=== PATIENT | male | born 1990 | race Caucasian/White ===

== ENCOUNTER 2016-04-09 05:36 | Emergency (ER) | payer BC ==
[2016-04-09] MEDS ORDERED: Sodium Chloride 0.9% 1000 ML 1,000 ML IV STA (06:14)
[2016-04-09] MEDS ORDERED: Sodium Chloride 0.9% 1000 ML 1,000 ML ONE (06:26)
[2016-04-09] MEDS ORDERED: TORAdol 30 mg Injection IV ONE (06:26)
[2016-04-09] MEDS ORDERED: TORAdol 30 mg Injection ONE (06:28)
[2016-04-09 06:29] LABS: BASOPHIL % 0.5 % (0.0-0.4); Eosinophil % 3.8 % (0.00-5.0); Granulocytes % 23.3 % (36.0-66.0); Lymphocytes % 63.2 % (24.0-44.0); Mean Cell Volume 88.1 fl (78-100); Mean Corpuscular Hemoglobin 29.1 pg (26-32); Mean Platelet Volume 9.4 fl (6-9.5); Monocytes % 9.2 % (0.0-12.0); Platelet Count 223 K/mm3 (150-450); Red Blood Count 4.37 M/mm3 (4.1-5.6); Red Cell Distribution Width 12.6 % (11.5-14.0); White Blood Count 7.3 K/mm3 (4.0-10.5)
--- NOTE | 2016-04-09 06:37 | ERPHSYRPT ---
- History of Present Illness Historian: patient Patient Subjective Stated Complaint: pt c/o cramping and sharp pain in rlq and rt flank radiating to rt testicle. increased with movement and laying flat. states he has had pain for 24 hrs Triage Nursing Assessment: pt alert and oriented. answers questions approp. pt ambulatory with steady gait noted. respirations nonlabored with lungs cta. abd flat and soft with hypo bowel sounds. Timing/Duration: yesterday Previous symptoms: no prior history Hx Tetanus, Diphtheria Vaccination/Date Given: Yes Hx Influenza Vaccination/Date Given: No Hx Pneumococcal Vaccination/Date Given: No Immunizations Up to Date: Yes <ALEN GIBSON - Last Filed: 04/09/16 06:38> <WHITNEY LORENZO - Last Filed: 04/09/16 07:50> - History of Present Illness Time Seen by Provider: 04/09/16 06:14 Physician History: CC: abd pain Hx: 25 y/o healthy male patient with right sided flank and abd pain since yesterday. Some nausea. No vomiting. Some constipation. No chest pain. No fever or chills. Pain radiates from right flank to right groin area. No testicle swelling or discreet pain. Normal urination and no hematuria. Pain mild to moderate but bothersome. (ALEN GIBSON) Allergies/Adverse Reactions: No Known Drug Allergies Allergy (Verified 04/09/16 06:13) Home Medications: No Home Meds 1 [facility] UD 08/15/13 [History] - Review of Systems Constitutional: No Fever, No Chills Eyes: No Symptoms Ears, Nose, & Throat: No Throat Pain Respiratory: No Cough, No Dyspnea Cardiac: No Chest Pain Abdominal/Gastrointestinal: Abdominal Pain, Nausea, No Vomiting, No Diarrhea Genitourinary Symptoms: Flank Pain, No Dysuria, No Hematuria, No Testicle Pain Musculoskeletal: Back Pain, No Neck Pain Skin: No Rash Neurological: No Headache, No Paralysis, No Parasthesia All Other Systems: Reviewed and Negative <ALEN GIBSON - Last Filed: 04/09/16 06:38> - Past Medical History Pertinent Past Medical History: No - Past Surgical History Past Surgical History: No - Social History Smoking Status: Never smoker Exposure to second hand smoke: No Drug Use: marijuana Patient Lives Alone: No <ALEN GIBSON - Last Filed: 04/09/16 06:38> - Physical Exam General Appearance: alert, other (tall, thin, arachnodactyly) Eye Exam: PERRL/EOMI Ears, Nose, Throat Exam: normal ENT inspection, moist mucous membranes, other ( no high arched palate) Neck Exam: normal inspection, non-tender, supple Respiratory Exam: normal breath sounds, lungs clear Cardiovascular Exam: regular rate/rhythm, other (2+ femoral pulses), No murmur, No pulse deficit Gastrointestinal/Abdomen Exam: soft, other (no point tenderness), No distention , No mass, No guarding Male Genitalia Exam: normal genitalia, No hernia, No testicular tenderness Extremity Exam: normal range of motion Neurologic Exam: alert, oriented x 3, cooperative, programming manager II-XII nml as tested, sensation nml, No motor deficits Skin Exam: warm, dry, No rash SpO2 Interpretation: normal SpO2: 98 Oxygen Delivery: Room Air <ALEN GIBSON - Last Filed: 04/09/16 06:38> <WHITNEY LORENZO - Last Filed: 04/09/16 07:50> - Nursing Vital Signs Nursing Vital Signs: Initial Vital Signs Temperature 97.6 F Temperature Source Oral Pulse Rate 78 Respiratory Rate 16 Blood Pressure 128/64 Pain Intensity 1 - Physical Exam Comments: 04/09/16 06:35 high arched feet. Span 180cm and height 168 cm. (ALEN GIBSON) - Course Nursing assessment & vital signs reviewed: Yes <ALEN GIBSON - Last Filed: 04/09/16 06:38> - CT Exams Abdomen/Pelvis CT Interpretation: Tele-radiologist Report, Normal Appendix, No appendicitis, Other (small bowel loops with some fluid levels, ileus vs enteritis. Scattered fecal stasis without obstruction.) <WHITNEY LORENZO - Last Filed: 04/09/16 07:50> Ordered Tests: Active Orders 24 hr Category Date Time Status Clean Catch Urine Specimen STAT Care 04/09/16 06:14 Active IV Insertion STAT Care 04/09/16 06:14 Active NPO (ED) STAT Care 04/09/16 06:14 Active ABDOMEN AND PELVIS W/0 CONTRAS [CT] Stat Exams 04/09/16 06:27 Taken CHEST 2 VIEWS (PA AND LAT) Stat Exams 04/09/16 06:47 Ordered CBC W DIFF Stat Lab 04/09/16 06:06 Completed CMP Stat Lab 04/09/16 06:06 Completed LIPASE Stat Lab 04/09/16 06:30 Completed UA Stat Lab 04/09/16 06:40 Completed Medication Summary Discontinued Medications Generic Name Dose Route Start Last Admin Trade Name Darline PRN Reason Stop Dose Admin Sodium Chloride 1,000 mls @ 999 mls/hr 04/09/16 06:14 04/09/16 06:27 Sodium Chloride 0.9% 1000 Ml IV 04/09/16 07:14 999 mls/hr .Q1H1M STA Administration Sodium Chloride Confirm 04/09/16 06:26 Sodium Chloride 0.9% 1000 Ml Administered 04/09/16 06:27 Dose 1,000 mls @ ud .ROUTE .STK-MED ONE Ketorolac Tromethamine 30 mg 04/09/16 06:26 04/09/16 06:29 Toradol 30 Mg Injection IV 04/09/16 06:27 30 mg STAT ONE Administration Ketorolac Tromethamine Confirm 04/09/16 06:28 Toradol 30 Mg Injection Administered 04/09/16 06:29 Dose 30 mg .ROUTE .STK-MED ONE Lab/Rad Data: Laboratory Result Diagrams 04/09/16 06:06 04/09/16 06:06 Laboratory Results 04/09/16 04/09/16 04/09/16 Range/Units 06:40 06:30 06:06 WBC (4.0-10.5) K/mm3 RBC (4.1-5.6) M/mm3 Hgb (12.5-18.0) gm/dl Hct (42-50) % MCV (78-100) fl MCH (26-32) pg MCHC (32-36) g/dl RDW (11.5-14.0) % Plt Count (150-450) K/mm3 MPV (6-9.5) fl Gran % (36.0-66.0) % Lymphocytes % (24.0-44.0) % Monocytes % (0.0-12.0) % Eosinophils % (0.00-5.0) % Basophils % (0.0-0.4) % Basophils # (0-0.4) Sodium 144 (136-145) mEq/L Potassium 3.8 (3.5-5.1) mEq/L Chloride 106 (98-107) mEq/L Carbon Dioxide 28.9 (21-32) mEq/L Anion Gap 13.1 (5-15) MEQ/L BUN 21 H (9-20) mg/dL Creatinine 0.82 (0.55-1.30) mg/dl Estimated GFR > 60 ML/MIN Glucose 101 (70-110) MG/DL Calcium 8.8 (8.5-10.1) mg/dL Total Bilirubin 0.4 (0.2-1.0) mg/dL AST 67 H (15-37) U/L ALT 140 H (12-78) U/L Alkaline Phosphatase 91 (46-116) U/L Serum Total Protein 7.8 (6.4-8.2) gm/dL Albumin 3.9 (3.4-5.0) g/dL Lipase 274 (73-393) U/L Ur Collection Type CLEAN CATCH Urine Color YELLOW (YELLOW) Urine Appearance CLEAR (CLEAR) Urine pH 6.5 (5-6) Ur Specific [place] 1.025 (1.005-1.025) Urine Protein NEGATIVE (Negative) Urine Glucose (UA) NEGATIVE (NEGATIVE) mg/dL Urine Ketones NEGATIVE (NEGATIVE) Urine Nitrite NEGATIVE (NEGATIVE) Urine Bilirubin NEGATIVE (NEGATIVE) Urine Urobilinogen 0.2 (0-1) mg/dL Urine WBC (Auto) NEGATIVE (NEGATIVE) Urine RBC (Auto) NEGATIVE (0-5) Mart/ul Specimen Received 04/09/16 0640 04/09/16 Range/Units 06:06 WBC 7.3 (4.0-10.5) K/mm3 RBC 4.37 (4.1-5.6) M/mm3 Hgb 12.7 (12.5-18.0) gm/dl Hct 38.5 L (42-50) % MCV 88.1 (78-100) fl MCH 29.1 (26-32) pg MCHC 33.0 (32-36) g/dl RDW 12.6 (11.5-14.0) % Plt Count 223 (150-450) K/mm3 MPV 9.4 (6-9.5) fl Gran % 23.3 L (36.0-66.0) % Lymphocytes % 63.2 H (24.0-44.0) % Monocytes % 9.2 (0.0-12.0) % Eosinophils % 3.8 (0.00-5.0) % Basophils % 0.5 (0.0-0.4) % Basophils # 0.04 (0-0.4) Sodium (136-145) mEq/L Potassium (3.5-5.1) mEq/L Chloride (98-107) mEq/L Carbon Dioxide (21-32) mEq/L Anion Gap (5-15) MEQ/L BUN (9-20) mg/dL Creatinine (0.55-1.30) mg/dl Estimated GFR ML/MIN Glucose (70-110) MG/DL Calcium (8.5-10.1) mg/dL Total Bilirubin (0.2-1.0) mg/dL AST (15-37) U/L ALT (12-78) U/L Alkaline Phosphatase (46-116) U/L Serum Total Protein (6.4-8.2) gm/dL Albumin (3.4-5.0) g/dL Lipase (73-393) U/L Ur Collection Type Urine Color (YELLOW) Urine Appearance (CLEAR) Urine pH (5-6) Ur Specific [place] (1.005-1.025) Urine Protein (Negative) Urine Glucose (UA) (NEGATIVE) mg/dL Urine Ketones (NEGATIVE) Urine Nitrite (NEGATIVE) Urine Bilirubin (NEGATIVE) Urine Urobilinogen (0-1) mg/dL Urine WBC (Auto) (NEGATIVE) Urine RBC (Auto) (0-5) Mart/ul Specimen Received <ALEN GIBSON - Last Filed: 04/09/16 06:38> - Progress Progress: improved Counseled pt/family regarding: lab results, diagnosis, need for follow-up, rad results <WHITNEY LORENZO - Last Filed: 04/09/16 07:50> - Progress Progress Note: 04/09/16 06:[address] to evaluate for renal stone disease. Doubt appendicitis as no point tenderness in abdomen. 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 Advised he have primary care follow up regarding Marfan's. 04/09/16 07:[address] Lorenzo for further care and disposition. Labs and CT pending. (ALEN GIBSON) 04/09/16 07:16 Pt case discussed with Dr Gibson. Care assumed at 07:00. 04/09/16 07:40 Pt is currently pain-free after toradol. Discussed with pt lab results with mildly elevated LFT. Normal urinalysis. Normal CBC. Discussed CT findings with pt. Normal appendix. No kidney stones. Recommend f/u for elevated LFTs and possible Marfans. (WHITNEY LORENZO) <ALEN GIBSON - Last Filed: 04/09/16 06:38> - Departure Time of Disposition: 07:44 Departure Disposition: Home Critical Care Time: No <WHITNEY LORENZO - Last Filed: 04/09/16 07:50> - Departure Clinical Impression: Right flank pain, Marfan's stigmata Condition: Fair Referrals: DOCTOR,NO FAMILY [Primary Care Provider] - Additional Instructions: Follow up for evaluation and discussion of elevated liver enzymes and possible Marfans. Tylenol and Ibuprofen as needed.
[2016-04-09 06:48] LABS: ALBUMIN 3.9 g/dL (3.4-5.0); ALKALINE PHOSPHATASE 91 U/L (46-116); ANION GAP 13.1 MEQ/L (5-15); BILIRUBIN,TOTAL 0.4 mg/dL (0.2-1.0); BLOOD UREA NITROGEN 21 mg/dL (9-20); CHLORIDE 106 mEq/L (98-107); Carbon Dioxide 28.9 mEq/L (21-32); Glucose 101 MG/DL (70-110); Potassium 3.8 mEq/L (3.5-5.1); SGOT/AST 67 U/L (15-37); SGPT/ALT 140 U/L (12-78); SODIUM 144 mEq/L (136-145); Total Protein 7.8 gm/dL (6.4-8.2)
[2016-04-09 06:49] LABS: Collection Type CLEAN CATCH; Ph 6.5 (5-6)
[2016-04-09 06:50] LABS: COMPLETE URINE MICROSCOPIC? NO
[2016-04-09 07:20] VITALS: BP 112/54; PULSE 70; O2SAT 98
--- NOTE | 2016-04-09 08:55 | XRAY ---
Indication: Right lower quadrant and flank pain. Multiple contiguous axial images obtained through the abdomen and pelvis without contrast as ordered. Comparison: None Lung bases clear with right base calcified granuloma. Heart is not enlarged. Noncontrasted stomach and bowel loops appear nonobstructed. There are mild fluid distended small bowel loops in the pelvis with some fluid leveling, ileus versus enteritis. Tiny pelvic free fluid. Normal air-filled appendix. Mild scattered colonic fecal debris throughout. 12.5 cm splenomegaly. Gallbladder contracted without gallstones. Remaining liver, pancreas, adrenal glands, kidneys, ureters, bladder, and aorta appear unremarkable for noncontrast exam. Osseous structures intact. Impression: 1. Mild fluid distended small bowel loops in the pelvis with fluid leveling, ileus versus enteritis. Tiny pelvic free fluid may be reactive. 2. Incidental mild fecal stasis, splenomegaly, and evidence for old granulomatous disease. CT DI is 8.11
--- NOTE | 2016-04-09 08:55 | XRAY ---
Indication: Flank pain. Comparison: None PA/lateral chest hyperinflated and clear with a few calcified granulomas. Heart is not enlarged. Bony thorax intact. Impression: Nonacute hyperinflated chest. Evidence for old granulomatous disease.
== END 2016-04-09 07:45 | disposition home or self-care (01) ==
LOC: ED 05:36
DX: R10.9 Unspecified abdominal pain (principal); Q87.40 Marfan syndrome, unspecified; R11.0 Nausea
CPT/HCPCS: 36000; 36415; 71020; 74176; 80053; 81002; 83690; 85025; 96360; 96374; 99283; J1885

== ENCOUNTER 2016-09-20 12:55 | Emergency (ER) | payer BC ==
[2016-09-20 13:08] VITALS: O2SAT 99
--- NOTE | 2016-09-20 13:22 | ERPHSYRPT ---
- History of Present Illness Time Seen by Provider: 09/20/16 13:16 Source: patient Exam Limitations: no limitations Patient Subjective Stated Complaint: rash for 5 days Triage Nursing Assessment: states rash started on rt lower leg and has spread to lt lower leg with also a spot to lt upper thigh. c/o itching. calamine lotion with minimal help. pustule type areas noted--no drainage Physician History: rash for 5 days Quality: burning, itchy Severity: severe Location: extremities Associated Symptoms: blisters, hives Allergies/Adverse Reactions: No Known Drug Allergies Allergy (Verified 09/20/16 13:07) Home Medications: No Home Meds 1 [facility] UD 08/15/13 [History] Hx Tetanus, Diphtheria Vaccination/Date Given: Yes Hx Influenza Vaccination/Date Given: No Hx Pneumococcal Vaccination/Date Given: No Immunizations Up to Date: Yes - Review of Systems Constitutional: No Fever, No Chills Eyes: No Symptoms Ears, Nose, & Throat: No Symptoms Respiratory: No Cough, No Dyspnea Cardiac: No Chest Pain, No Edema, No Syncope Abdominal/Gastrointestinal: No Abdominal Pain, No Nausea, No Vomiting, No Diarrhea Genitourinary Symptoms: No Dysuria Musculoskeletal: No Back Pain, No Neck Pain Skin: Rash (both lower legs) Neurological: No Dizziness, No Focal Weakness, No Sensory Changes Psychological: No Symptoms Endocrine: No Symptoms All Other Systems: Reviewed and Negative - Past Medical History Pertinent Past Medical History: No - Past Surgical History Past Surgical History: No - Social History Smoking Status: Current every day smoker Exposure to second hand smoke: Yes Drug Use: marijuana Patient Lives Alone: No - Nursing Vital Signs Nursing Vital Signs: Initial Vital Signs Temperature 98.7 F Temperature Source Oral Pulse Rate 76 Respiratory Rate 18 Blood Pressure [Right Arm] 125/74 Pain Intensity 4 - Physical Exam General Appearance: no apparent distress Skin Exam: rash (maculopapular on legs and on left thigh) SpO2: 99 Oxygen Delivery: Room Air - Course Nursing assessment & vital signs reviewed: Yes - Progress Progress: unchanged Counseled pt/family regarding: diagnosis, need for follow-up - Departure Time of Disposition: 13:20 Departure Disposition: Home Clinical Impression: Rash and nonspecific skin eruption Condition: Stable Critical Care Time: No Referrals: DOCTOR,NO FAMILY [Primary Care Provider] - Additional Instructions: RASH 1. Depending on the reason for the rash, the instructions will differ. 2. If an antibiotic has been prescribed, take it as directed until gone. 3. If anti-fungals or shampoos are prescribed, use only as directed and follow specific instructions on package container. 4. Avoid hot showers/baths, as this may increase itching. 5. Calamine lotion or Aveeno Oatmeal baths may help itching. 6. See your family physician if these signs or symptoms persist for more than four days. Prescriptions: Triamcinolone 0.1% Cream [Kenalog 0.1% Cream 15 gm] 1 gm TP QID #80 cream
[2016-09-20 13:34] VITALS: BP 124/70; PULSE 84
== END 2016-09-20 13:33 | disposition home or self-care (01) ==
LOC: ED 12:55
DX: R21 Rash and other nonspecific skin eruption (principal)
CPT/HCPCS: 99283